=== PATIENT | male | born 1980 | race Two or more races ===

== ENCOUNTER 2024-03-01 16:23 | Emergency (ER) | payer MEDICAID, SELFPAY ==
[2024-03-01 16:45] VITALS: BP 152/83; PULSE 80; RESP 18; TEMP 36.6; O2SAT 99; BMI 26.2
--- NOTE | 2024-03-01 16:45 | PD.EDRME ---
Rapid Medical Screening Exam RME Arrival date/time: 03/01/24 16:23 43-year-old male presents emerged department complaint of lower abdominal pain Chief Complaint: Abdominal Pain
[2024-03-01 17:13] LABS: Basophils # (Auto) 0.1 Thou/mm3 (0.0-0.2); Basophils % (Auto) 1 % (0-2.5); Eosinophils # (Auto) 0.1 Thou/mm3 (0.0-0.5); Eosinophils % (Auto) 2 % (0-10); Hematocrit 35.9 % (41.0-53.0); Hemoglobin 13.1 g/dL (13.5-16.0); Immature Granulocytes % (Auto) 0 % (0-0); Immature Granulocytes Auto 0.02 Thou/mm3 (0.00-0.00); Lymphocytes % (Auto) 38 % (10-50); Mean Corpuscular HGB Conc 36.5 g/dl (31.0-37.0); Mean Corpuscular Hemoglobin 32.7 pg (25.0-35.0); Mean Corpuscular Volume 90 fL (80-100); Monocytes # (Auto) 0.4 Thou/mm3 (0.0-0.8); Monocytes % (Auto) 7 % (0-12); Neutrophils # (Auto) 2.8 Thou/mm3 (1.8-7.7); Neutrophils % (Auto) 51 % (37-80); Nucleated Red Blood Cell % 0 /100 WBC (0); Platelet Count 250 Thou/mm3 (140-440); Red Blood Count 4.01 Miln/mm3 (4.50-5.90); White Blood Count 5.4 Thou/mm3 (3.8-10.6)
[2024-03-01 17:28] LABS: Partial Thromboplastin Time 26.7 Seconds (22.0-36.0); Prothrombin Time 10.7 Seconds (9.0-12.2)
[2024-03-01 17:36] LABS: Alanine Aminotransferase 15 U/L (10-49); Albumin, Serum 4.7 gm/dL (3.5-5.0); Albumin/Globulin Ratio 1.7 (1.2-2.2); Alcohol, Blood Medical < 3.0 mg/dL (0-10.0); Alkaline Phosphatase 93 U/L (46-116); Anion Gap 7 (7-16); Aspartate Amino Transferase 29 U/L (0-34); BUN/Creatinine Ratio 13 Ratio (12-20); Bilirubin,Total 0.3 mg/dL (0.3-1.2); Blood Urea Nitrogen 10 mg/dL (9-23); Calcium 9.6 mg/dL (8.3-10.6); Calcium (Corrected) 9.6 mg/dL (8.5-10.1); Carbon Dioxide 25.5 mMol/L (20.0-31.0); Chloride 104 mMol/L (98-107); Creatinine (Component) 0.8 mg/dL (0.6-1.3); Estimated Creatinine Clearance 89.7 mL/min (>60); Globulin 2.7 gm/dL (2.3-3.5); Glucose 104 mg/dL (74-106); Lipase 38 U/L (12-53); Osmolality,Calculated 270 (275-295); Potassium 3.8 mMol/L (3.4-5.1); Sodium 136 mMol/L (136-145); Total Protein 7.4 gm/dL (5.7-8.2); eGFR > 60 See Note
[2024-03-01 18:05] LABS: Collection Type, Urine Clean Catch; Squamous Epithelial Cell,Urine 0 /hpf (0-5)
[2024-03-01 18:13] LABS: Bilirubin,Urine Negative (Negative); Blood,Urine Negative (Negative); Clarity,Urine Clear (Clear/Hazy); Color,Urine Colorless (Lt Yel-Yel); Culture Indicated,Urine Not Indicated; Glucose, Urine Negative (Negative); Ketones,Urine Negative (Negative); Leukocyte Esterase,Urine Negative (Negative); Nitrite,Urine Negative (Negative); Protein,Urine Negative (Neg - Trace); RBC,Urine 2 /hpf (0-3); Specific Gravity,Urine 1.004 (1.001-1.035); Urobilinogen,Urine Negative mg/dL (0.0-1.0); WBC,Urine < 1 /hpf (0-5)
--- NOTE | 2024-03-01 19:50 | EDNOTE_ITS ---
ED General RME/HPI General Chief complaint: Abdominal Pain Stated complaint: EPIGASTRIC PAIN, VOMITING X YESTERDAY Time Seen by Provider: 03/01/24 19:40 Arrival date/time: 03/01/24 16:23 CC: Epigastric pain with pain rating up to the base of his throat ongoing for the past day. Patient is known history of alcoholism, states he drinks 3 tall cans of beer every day . Patient denies fever chills chest pain shortness of breath difficulty breathing. RME / HPI RME / HPI narrative: 03/01/24 16:23 43-year-old male presents emerged department complaint of lower abdominal pain Related Data Previous Rx's ?Medication ?Instructions ?Recorded ondansetron HCl 4 mg tablet 4 mg PO Q8H #10 tabs 11/07/20 (Zofran) cephalexin 500 mg capsule 500 mg PO BID #14 caps 09/22/21 diphenhydramine HCl 50 mg capsule 50 mg PO TID PRN allergy symptoms 09/22/21 #14 caps ibuprofen 600 mg tablet 600 mg PO Q8H PRN pain #14 tabs 09/22/21 albuterol sulfate 90 mcg/actuation 2 puff inhalation QID #8.5 grams 09/26/21 aerosol inhaler hydrocortisone 2.5 % topical cream 1 applic topical BID PRN rash #30 09/26/21 grams pantoprazole 20 mg tablet,delayed 20 mg PO QDAY #20 tabs 12/16/21 release (Protonix) pantoprazole 40 mg tablet,delayed 40 mg PO QDAY #30 tabs 12/25/22 release (Protonix) famotidine 20 mg tablet 20 mg PO QDAY #20 tabs 03/01/24 sucralfate 1 gram tablet (Carafate) 1 g PO BID #30 tabs 03/01/24 Allergies Allergy/AdvReac Type Severity Reaction Status Date / Time No Known Allergies Allergy Verified 03/01/24 16:24 Review of Systems Review of Systems Narrative Review of Systems: GEN: No fever, no chills, no weight loss EYES: No discharge, no visual changes, no pain HEENT: No ear pain, no congestion, no sore throat PULM: No shortness of breath, no cough, no congestion CV: No chest pain, no dyspnea on exertion, no palpitations GI: No nausea, no vomiting, no diarrhea, + pain, no constipation : No frequency, no urgency, no dysuria MUSC/SKEL: No joint pain, no back pain SKIN: No rash PSYCH: No hallucinations, no depression HEME/LYMPH: No easy bleeding or bruising tendencies NEURO: No weakness, no headache Past Medical History Past Medical History CARDIAC: Negative Cardiac Disorders or Congestive Heart Failure RESPIRATORY: Negative Chronic Obstructive Pulmonary Disease (COPD) or Asthma GENITOURINARY: Negative Renal Disease ENDOCRINE: Negative Diabetes Mellitus Type 1 or Diabetes Mellitus Type 2 HEMATOLOGIC: Negative Sickle Cell Disease Social History SMOKING STATUS: Never smoker ED Exam Narrative Physical exam: [General: Not in any acute distress Head normocephalic HEENT: Eyes pupils are PERRLA EOMs are intact noninjected icteric sclera's. All other subsystems of HEENT are within acceptable limits Neck is supple nontender Chest equal chest rise nontender to palpation Respiratory: Clear to auscultation no wheezes crackles or rubs CV: Rate rhythm is regular no murmurs rubs or clicks Abdomen mild tenderness to the epigastrium mild tenderness to the right upper quadrant and minimal tenderness to the left upper quadrant no reflexive guarding rebound tenderness no lower abdomen tenderness with palpation positive bowel sounds all 4 quadrants. Back: No CVA tenderness no spinous process tenderness from cervical spine thoracic and lumbar spine Skin: Intact no petechiae rash induration ulceration or crepitus Extremities: Moving all extremity against resistance cap refill less than 2 seconds neurosensory intact Neuro: Awake alert oriented x3 Glascow coma 15 no focal deficits] Course Quality Measures none Orders Category Date Time Status CT Screening NOW Care 03/01/24 16:[address] abdomen pelvis wo con Stat Exams 03/01/24 20:59 Completed Alcohol, Blood Medical Stat Lab 03/01/24 17:00 Completed CBC Stat Lab 03/01/24 17:00 Completed Comprehensive Metabolic Panel Stat Lab 03/01/24 17:00 Completed Lipase Stat Lab 03/01/24 17:00 Completed PT [Prothrombin Time with INR] Stat Lab 03/01/24 17:00 Completed PTT [Partial Thromboplastin Time] Stat Lab 03/01/24 17:00 Completed UA, C/S IF [Urinalysis, C/S if Indicated] Stat Lab 03/01/24 17:54 Completed Dexamethasone Inj [Decadron Inj] Med 03/01/24 19:35 Discontinued 10 mg IV X1 ONE DiphenhydrAMINE INJ [Benadryl Inj] Med 03/01/24 19:35 Discontinued 25 mg IVP X1 ONE Famotidine Inj [Pepcid Inj] Med 03/01/24 19:53 Discontinued 20 mg IVP X1 ONE MethylPREDNISolone.* [SoluMEDROL Inj] Med 03/01/24 19:43 Discontinued 125 mg IVP X1 ONE Vital Signs Vital signs: Vital Signs Temperature 98 F 03/01/24 16:45 Pulse Rate 80 03/01/24 16:45 Respiratory Rate 18 03/01/24 16:45 Blood Pressure 152/83 H 03/01/24 16:45 Pulse Oximetry (%) 99 03/01/24 16:45 Oxygen Delivery Method Room Air 03/01/24 16:45 [facility] Patient data External records reviewed:: [facility] previous records Clinical information provided by:: patient Social determinants that could affect healthcare access:: none Patient has the following chronic illnesses:: Alcoholism How is presenting disease/condition affected by chronic disease/condition?: u neffected by Evaluation data The following diagnostics were reviewed and interpreted by me:: lab results and radiology exam(s) Lab and/or radiology exams considered but not ordered:: CBC shows no leukocytosis and anemia of 13 and 35, no thrombocytopenia Coags within acceptable limits CBC shows no acute leukocytosis anemia thrombocytopenia no transaminitis or T. bili elevation Lipase of 38 Urine is negative for UTI Alcohol level is 0 Interpretation Summary: Epigastric pain most likely is gastritis or peptic ulcer disease secondary to poor dietary intake and chronic alcohol abuse. Medications Medications considered but not ordered:: None Medication administrations:: Medication Administration History Discontinued Medications Dexamethasone Sodium Phosphate (Dexamethasone Sod Phos Inj 10 Mg/Ml Vial) 10 mg IV X1 ONE Stop: 03/01/24 19:36 Last Admin: 03/01/24 19:55 Dose: Not Given Documented By: SF Non-Admin Reason: Cancelled by Provider Diphenhydramine HCl (Diphenhydramine Inj 50 Mg/Ml Vial) 25 mg IVP X1 ONE Stop: 03/01/24 19:36 Last Admin: 03/01/24 19:55 Dose: 25 mg Documented By: SF Famotidine (Famotidine Inj 10 Mg/Ml Vial 2 Ml) 20 mg IVP X1 ONE Stop: 03/01/24 19:54 Last Admin: 03/01/24 19:57 Dose: 20 mg Documented By: SF Methylprednisolone Sodium Succinate (Methylprednisolone Sod Succ 62.5 Mg/Ml 2ml Vial) 125 mg IVP X1 ONE Stop: 03/01/24 19:44 Last Admin: 03/01/24 19:55 Dose: 125 mg Documented By: ZELDA None Consultations Consultation(s) initiated? (list below): No Diagnosis Differential Diagnosis ED Complaint MDM: Epigastric pain gastritis cholelithiasis Most likely diagnosis given after review of the tests above:: Gastritis Admission Indicated Admission indicated?: not indicated Explain why admission is indicated or not indicated:: Stable for outpatient follow-up Admission Request Was there a request for admission?: No Disposition Plan Disposition Plan: Discharge Discharge Attestation Discharge Attestation: The patient and all family members were given an opportunity to ask questions and understood the discharge instructions. Discharge instructions specifically effects, indications for sooner follow up or return to the emergency department, and the expected course of current diagnosis. Patient condition: Stable Medical Decision Making Differential Diagnosis Differential Diagnosis: Epigastric pain gastritis cholelithiasis Lab Data 03/01/24 17:00 03/01/24 17:00 Labs: Lab Results 03/01/24 03/01/24 Range/Units 17:00 17:54 WBC 5.4 (3.8-10.6) Thou/mm3 RBC 4.01 L (4.50-5.90) Miln/mm3 Hgb 13.1 L (13.5-16.0) g/dL Hct 35.9 L (41.0-53.0) % MCV 90 (80-100) fL MCH 32.7 (25.0-35.0) pg MCHC 36.5 (31.0-37.0) g/dl RDW Std Deviation 40.0 (35.1-43.9) fL Plt Count 250 (140-440) Thou/mm3 Neut % (Auto) 51 (37-80) % Lymph % (Auto) 38 (10-50) % [place] % (Auto) 7 (0-12) % Eos % (Auto) 2 (0-10) % Baso % (Auto) 1 (0-2.5) % Neut # (Auto) 2.8 (1.8-7.7) Thou/mm3 Lymph # (Auto) 2.0 (1.0-4.8) Thou/mm3 [place] # (Auto) 0.4 (0.0-0.8) Thou/mm3 Eos # (Auto) 0.1 (0.0-0.5) Thou/mm3 Baso # (Auto) 0.1 (0.0-0.2) Thou/mm3 Immature Gran # (Auto) 0.02 H (0.00-0.00) Thou/mm3 Absolute Nucleated RBC 0.00 (0.00-0.00) Thou/mm3 Immature Gran % 0 (0-0) % Nucleated RBC % 0 (0) /100 WBC PT 10.7 (9.0-12.2) Seconds INR 1.0 (0.9-1.3) APTT 26.7 (22.0-36.0) Seconds Sodium 136 (136-145) mMol/L Potassium 3.8 (3.4-5.1) mMol/L Chloride 104 (98-107) mMol/L Carbon Dioxide 25.5 (20.0-31.0) mMol/L Anion Gap 7 (7-16) BUN 10 (9-23) mg/dL Creatinine 0.8 (0.6-1.3) mg/dL Estim Creat Clear Calc 89.7 (>60) mL/min eGFR > 60 (60 - ) See Note BUN/Creatinine Ratio 13 (12-20) Ratio Glucose 104 (74-106) mg/dL Calculated Osmolality 270 L (275-295) Calcium 9.6 (8.3-10.6) mg/dL Corrected Calcium 9.6 (8.5-10.1) mg/dL Total Bilirubin 0.3 (0.3-1.2) mg/dL AST 29 (0-34) U/L ALT 15 (10-49) U/L Alkaline Phosphatase 93 (46-116) U/L Total Protein 7.4 (5.7-8.2) gm/dL Albumin 4.7 (3.5-5.0) gm/dL Globulin 2.7 (2.3-3.5) gm/dL Albumin/Globulin Ratio 1.7 (1.2-2.2) Lipase 38 (12-53) U/L Ur Collection Type Clean Catch Urine Color Colorless A (Lt Yel-Yel) Urine Clarity Clear (Clear/Hazy) Urine pH 7.0 (5.0-7.0) Ur Specific [place] 1.004 (1.001-1.035) Urine Protein Negative (Neg - Trace) Urine Glucose (UA) Negative (Negative) Urine Ketones Negative (Negative) Urine Blood Negative (Negative) Urine Nitrite Negative (Negative) Urine Bilirubin Negative (Negative) Urine Urobilinogen (Auto) Negative (0.0-1.0) mg/dL Ur Leukocyte Esterase Negative (Negative) Urine RBC 2 (0-3) /hpf Urine WBC < 1 (0-5) /hpf Ur Squamous Epith Cells 0 (0-5) /hpf Urine Bacteria None (None) Ur Culture Indicated? Not Indicated Ethyl Alcohol < 3.0 (0-10.0) mg/dL Discharge Plan Plan Patient Disposition: HOME (Self Care) Patient condition on transfer: Stable Prescriptions/Referrals Prescriptions/Med Rec: New famotidine 20 mg tablet 20 mg PO QDAY Qty: 20 0RF sucralfate [Carafate] 1 gram tablet 1 g PO BID Qty: 30 1RF No Action ondansetron HCl [Zofran] 4 mg tablet 4 mg PO Q8H Qty: 10 0RF cephalexin 500 mg capsule 500 mg PO BID Qty: 14 0RF diphenhydramine HCl 50 mg capsule 50 mg PO TID PRN (Reason: allergy symptoms) Qty: 14 0RF ibuprofen 600 mg tablet 600 mg PO Q8H PRN (Reason: pain) Qty: 14 0RF albuterol sulfate 90 mcg/actuation HFA aerosol inhaler 2 puff inhalation QID Qty: 8.5 0RF hydrocortisone 2.5 % cream 1 applic topical BID PRN (Reason: rash) Qty: 30 0RF pantoprazole [Protonix] 20 mg tablet,delayed release (DR/EC) 20 mg PO QDAY Qty: 20 0RF pantoprazole [Protonix] 40 mg tablet,delayed release (DR/EC) 40 mg PO QDAY Qty: 30 0RF Referrals: German Vasquez MD [Physician] - In 1 week No Primary/Family,Physician [Primary Care Provider] - In 1 week Problem List Clinical Impression: Epigastric pain Patient/Caregiver Discharge Instructions Education Materials: ED Epigastric Pain (Uncertain Cause), ED Diet, [facility] (Adult) Additional Instructions: Take the medication as prescribed follow-up with your primary care provider cut back on the drinking beer. Print Language: Sami Stand Alone Forms: Janneth Award Info., Patient Portal Info Letter PA/SPORTS MEDIA Supervising Physician PA/SPORTS MEDIA Supervising Physician: Kenyon Verdugo ENP
[2024-03-01] MEDS: MethylPREDNISolone SOD SUCC 62.5 MG/ML 2ML VIAL 125 MG IVP (19:55)
[2024-03-01] MEDS: DiphenhydrAMINE INJ 50 MG/ML VIAL 25 MG IVP (19:55)
[2024-03-01] MEDS: FAMOTIDINE INJ 10 MG/ML VIAL 2 ML 20 MG IVP (19:57)
--- NOTE | 2024-03-01 20:59 | XR_ITS ---
Examination: CT abdomen and pelvis without contrast. Coronal 3-D reconstructions. Sagittal 2-D reconstructions. Date and time of exam:March 01, 2020 07/23/2013 p.m. Indications: Epigastric pain and vomiting beginning today Comparison 12/25/2022 CTDI: vol (mGy): 5.91 DLP: (mGycm): 348 Technique: Axial images of the abdomen have been obtained, 3 mm slice thickness Intravenous contrast material has not been administered. Low dose protocols were performed. One or more of the following dose reduction techniques were used; automated exposure control, adjustment of the mA and/or KV according to patient size, use of iterative reconstruction technique. Findings: No focal liver or splenic lesions No gallstones No pancreatic or adrenal mass No renal or ureteral calculi, no hydronephrosis Aorta normal size 5 mm fat-containing umbilical hernia Normal appendix No bowel obstruction Urinary bladder wall is thickened up to 7 mm No prostatomegaly Osseous structures are intact Impression: Negative for gallstones No renal or ureteral calculi, no hydronephrosis Normal appendix Urinary bladder wall thickening up to 7 mm, differential would include cystitis
== END 2024-03-01 22:21 | disposition home or self-care (01) ==
PROVIDERS: Nurse Practitioner Primary Care; Emergency Provider Emergency Medicine
DX: R10.13 Epigastric pain (principal)
CPT/HCPCS: 36415; 74176; 80053; 80320; 81001; 83690; 85025; 85610; 85730; 96374; 96375; 99284; J1200; J2919; J3490; G0480

== ENCOUNTER 2024-08-03 17:03 | Emergency (ER) | payer MEDICAID, SELFPAY ==
[2024-08-03 17:11] VITALS: BP 138/82; PULSE 93; RESP 18; TEMP 37.6; O2SAT 98
--- NOTE | 2024-08-03 17:15 | XR_ITS ---
Examination: Abdomen sonogram, Limited Date and time of exam: August 03, 2024 1934 hours INDICATIONS: Epigastric pain and tenderness beginning today Technique: Real-time albright scale transabdominal sonographic images of the upper abdomen obtained. Findings: Normal gallbladder. Normal common bile duct 0.3 cm Pancreatic head 2.7 cm Liver 13.0 cm fatty infiltration no focal liver lesions Normal hepatopedal portal venous flow Patent IVC IMPRESSION: Normal gallbladder Normal common bile duct Fatty liver
--- NOTE | 2024-08-03 17:16 | EDNOTE_ITS ---
ED Abdominal Pain RME/HPI General Chief Complaint: Abdominal Pain Stated complaint: UPPER ABD PAIN RAD TO BACK, DIARRHEA Time seen by provider: 08/03/24 17:11 Arrival date/time: 08/03/24 17:03 RME / HPI RME / HPI narrative: 44-year-old male patient was brought in by family for evaluation regarding right upper quadrant pain. Onset of symptoms since few days as right upper quadrant pain, associated with diarrhea nonbloody. Patient denies any fever. Denies any vomiting denies any other complaints no medication was taken prior to arrival. Related Data Previous Rx's ?Medication ?Instructions ?Recorded ondansetron HCl 4 mg tablet 4 mg PO Q8H #10 tabs 11/07 (Zofran) cephalexin 500 mg capsule 500 mg PO BID #14 caps 09/22 diphenhydramine HCl 50 mg capsule 50 mg PO TID PRN all ergy symptoms 09/22/21 #14 caps ibuprofen 600 mg tablet 600 mg PO Q8H PRN pain #14 t abs 09/22/21 albuterol sulfate 90 mcg/actuation 2 puff inhalation Q ID #8.5 grams 09/26/21 aerosol inhaler hydrocortisone 2.5 % topical cream 1 applic topical BI D PRN rash #30 09/26/21 grams pantoprazole 20 mg tablet,delayed 20 mg PO QDAY #20 ta bs 12/16/21 release (Protonix) pantoprazole 40 mg tablet,delayed 40 mg PO QDAY #30 ta bs 12/25/22 release (Protonix) famotidine 20 mg tablet 20 mg PO QDAY #20 tabs 03/01 sucralfate 1 gram tablet (Carafate) 1 g PO BID #30 tab s 03/01/24 ondansetron HCl 4 mg tablet 4 mg PO Q8H PRN nausea and 08/03/24 vomiting 5 days #20 tabs pantoprazole 40 mg tablet,delayed 40 mg PO QDAY #30 ta bs 08/03/24 release (Protonix) Allergies Allergy/AdvReac Type Severity Reaction Status Date / Time No Known Allergies Allergy Verified 03/01/24 16:24 Review of Systems Review of Systems Narrative Review of Systems: Review of system reviewed and within normal limits except mentioned in HPI ED Exam Narrative Physical exam: VITAL SIGNS: Reviewed. GENERAL APPEARANCE: Alert and interactive, follows commands, no acute distress, HEAD AND FACE: Non-traumatic. ENT: PERRL, pink conjunctivitis, eyelid no trauma, Mucous membrane moist. NECK: Supple, nontender, no nuchal rigidity. CHEST: No tenderness, no crepitus, no paradoxical movement, no retractions. LUNGS: Clear, well ventilated, symmetric, no rales, no wheezing, no ronchi, no stridor, good breath sounds bilaterally. HEART: Regular rate, regular rhythm, no murmur, no gallops. ABDOMEN: Soft, positive bowel sounds, nondistended, no guarding, right upper quadrant tenderness, no rebound, no masses, RECTAL: Deferred. GENITAL: Deferred. NEUROLOGICAL: Gross motor function intact sensory function intact, Appropriate for age. MUSCULOSKELETAL: low back nontender, full range of motion. EXTREMITIES: Nontender, full range of motion. SKIN: Color pink, dry, no rash, no lacerations, no abrasions, no contusions. LYMPHATICS: Deferred. Course Quality Measures none Orders Category Date Time Status US gall bladder Stat Exams 08/03/24 17:15 Completed CBC Stat Lab 08/03/24 17:51 Completed Comprehensive Metabolic Panel Stat Lab 08/03/24 17:51 Completed Lipase Stat Lab 08/03/24 17:51 Completed Prothrombin Time with INR Stat Lab 08/03/24 17:51 Completed UA, C/S IF [Urinalysis, C/S if Indicated] Stat Lab 08/03/24 17:32 Completed Famotidine [Pepcid] Med 08/03/24 17:15 Discontinued 40 mg PO X1 ONE Ondansetron Odt [Zofran Odt] Med 08/03/24 17:15 Discontinued 4 mg PO X1 ONE Vital Signs Vital signs: Vital Signs Temperature 99.6 F 08/03/24 17:11 Pulse Rate 93 08/03/24 17:11 Respiratory Rate 18 08/03/24 17:11 Blood Pressure 138/82 H 08/03/24 17:11 Pulse Oximetry (%) 98 08/03/24 17:11 Oxygen Delivery Method Room Air 08/03/24 17:11 Abdominal Pain MDM MDM Narrative MDM Narrative:: 44-year-old male patient was brought in by family for evaluation regarding right upper quadrant pain. Onset of symptoms since few days as right upper quadrant pain, associated with diarrhea nonbloody. Patient denies any fever. Denies any vomiting denies any other complaints no medication was taken prior to arrival. Patient is laboratory workup all came back normal. Ultrasound of the gallbladder also came back unremarkable. Results discussed with the patient. No recurrence of diarrhea or vomiting noted in the emergency room. Patient appears nontoxic and hemodynamically stable. Patient discharged home and instructed to follow-up with primary care provider in 24 to 48 hours. Instructed to return to the emergency department immediately if worsening of symptoms Patient data External records reviewed:: None Clinical information provided by:: patient Social determinants that could affect healthcare access:: none Patient has the following chronic illnesses:: None How is presenting disease/condition affected by chronic disease/condition?: no chronic disease Evaluation data The following diagnostics were reviewed and interpreted by me:: lab results and radiology exam(s) Lab and/or radiology exams considered but not ordered:: None Interpretation Summary: See results in MD Medications / Prescriptions Medications or Prescriptions considered but not ordered:: None Medication administrations:: Medication Administration History Discontinued Medications Famotidine (Famotidine 20 Mg Tablet) 40 mg PO X1 ONE Stop: 08/03/24 17:16 Last Admin: 08/03/24 18:04 Dose: 40 mg Documented By: TRENA Ondansetron HCl (Ondansetron Odt 4 Mg Tabrap) 4 mg PO X1 ONE; Protocol Stop: 08/03/24 17:16 Last Admin: 08/03/24 18:04 Dose: 4 mg Documented By: TRENA Chaidez Consultations Consultation(s) initiated? (list below): No Diagnosis Differential diagnosis abdominal pain: abdominal pain Most likely diagnosis given after review of the tests above:: Epigastric pain, gastroenteritis Admission Indicated Admission indicated?: not indicated Admission Request Was there a request for admission?: No Disposition Plan Disposition Plan: Discharge Discharge Attestation Discharge Attestation: The patient was given an opportunity to ask questions and understood the discharge instructions. Discharge instructions specifically effects, indications for sooner follow up or return to the emergency department, and the expected course of current diagnosis. Patient condition: Stable Discharge Plan Plan Patient Disposition: HOME (Self Care) Disposition Comment: stable Prescriptions/Referrals Prescriptions/Med Rec: New pantoprazole [Protonix] 40 mg tablet,delayed release (DR/EC) 40 mg PO QDAY Qty: 30 0RF ondansetron HCl 4 mg tablet 4 mg PO Q8H PRN (Reason: nausea and vomiting) 5 Days Qty: 20 0RF No Action ondansetron HCl [Zofran] 4 mg tablet 4 mg PO Q8H Qty: 10 0RF cephalexin 500 mg capsule 500 mg PO BID Qty: 14 0RF diphenhydramine HCl 50 mg capsule 50 mg PO TID PRN (Reason: allergy symptoms) Qty: 14 0RF ibuprofen 600 mg tablet 600 mg PO Q8H PRN (Reason: pain) Qty: 14 0RF albuterol sulfate 90 mcg/actuation HFA aerosol inhaler 2 puff inhalation QID Qty: 8.5 0RF hydrocortisone 2.5 % cream 1 applic topical BID PRN (Reason: rash) Qty: 30 0RF famotidine 20 mg tablet 20 mg PO QDAY Qty: 20 0RF sucralfate [Carafate] 1 gram tablet 1 g PO BID Qty: 30 1RF pantoprazole [Protonix] 20 mg tablet,delayed release (DR/EC) 20 mg PO QDAY Qty: 20 0RF pantoprazole [Protonix] 40 mg tablet,delayed release (DR/EC) 40 mg PO QDAY Qty: 30 0RF Referrals: German Vasquez MD [Primary Care Provider] - In 1 week Problem List Clinical Impression: Gastroenteritis, Vomiting Patient/Caregiver Discharge Instructions Discharge Activity: activity as tolerated Education Materials: ED Vomiting (Adult) Additional Instructions: Thank you for the opportunity for serving you today. You are stable for discharged . You are advised to: Follow-up with your PCP in 1 to 2 days Return to ED for worsening of symptoms Increase oral fluids Take medication as prescribed Print Language: Georgian Stand Alone Forms: Janneth Award Info., Patient Portal Info Letter PA/MARKETING ADMINISTRATIVE ASSISTANT Supervising Physician PA/MARKETING ADMINISTRATIVE ASSISTANT Supervising Physician: MD Mikie
[2024-08-03 18:04] LABS: Collection Type, Urine Clean Catch; RBC,Urine 0 /hpf (0-3); Squamous Epithelial Cell,Urine 0 /hpf (0-5)
[2024-08-03] MEDS: ONDANSETRON ODT 4 MG TABRAP PO (18:04)
[2024-08-03] MEDS: FAMOTIDINE 20 MG TABLET 40 MG PO (18:04)
[2024-08-03 18:09] LABS: Basophils % (Auto) 1 % (0-2.5); Eosinophils # (Auto) 0.1 Thou/mm3 (0.0-0.5); Eosinophils % (Auto) 1 % (0-10); Hemoglobin 12.7 g/dL (13.5-16.0); Immature Granulocytes % (Auto) 0 % (0-0); Immature Granulocytes Auto 0.01 Thou/mm3 (0.00-0.00); Lymphocytes # (Auto) 0.9 Thou/mm3 (1.0-4.8); Lymphocytes % (Auto) 19 % (10-50); Mean Corpuscular HGB Conc 36.3 g/dl (31.0-37.0); Mean Corpuscular Hemoglobin 32.3 pg (25.0-35.0); Mean Corpuscular Volume 89 fL (80-100); Monocytes # (Auto) 0.4 Thou/mm3 (0.0-0.8); Monocytes % (Auto) 8 % (0-12); Neutrophils # (Auto) 3.6 Thou/mm3 (1.8-7.7); Neutrophils % (Auto) 71 % (37-80); Nucleated Red Blood Cell % 0 /100 WBC (0); Platelet Count 193 Thou/mm3 (140-440); RDW Standard Deviation 41.8 fL (35.1-43.9); Red Blood Count 3.93 Miln/mm3 (4.50-5.90); White Blood Count 5.1 Thou/mm3 (3.8-10.6)
[2024-08-03 18:25] LABS: Prothrombin Time 11.3 Seconds (9.0-12.2)
[2024-08-03 18:30] LABS: Alanine Aminotransferase 27 U/L (10-49); Albumin, Serum 4.7 gm/dL (3.5-5.0); Albumin/Globulin Ratio 1.7 (1.2-2.2); Alkaline Phosphatase 86 U/L (46-116); Anion Gap 7 (7-16); Aspartate Amino Transferase 39 U/L (0-34); BUN/Creatinine Ratio 15 Ratio (12-20); Bilirubin,Total 0.6 mg/dL (0.3-1.2); Blood Urea Nitrogen 12 mg/dL (9-23); Calcium 8.4 mg/dL (8.3-10.6); Calcium (Corrected) 8.4 mg/dL (8.5-10.1); Carbon Dioxide 23.6 mMol/L (20.0-31.0); Chloride 104 mMol/L (98-107); Creatinine (Component) 0.8 mg/dL (0.6-1.3); Globulin 2.8 gm/dL (2.3-3.5); Glucose 92 mg/dL (74-106); Lipase 30 U/L (12-53); Osmolality,Calculated 269 (275-295); Potassium 3.8 mMol/L (3.4-5.1); Sodium 135 mMol/L (136-145); Total Protein 7.5 gm/dL (5.7-8.2); eGFR > 60 See Note
[2024-08-03 18:47] LABS: Bilirubin,Urine Negative (Negative); Blood,Urine Negative (Negative); Clarity,Urine Clear (Clear/Hazy); Color,Urine Colorless (Lt Yel-Yel); Culture Indicated,Urine Not Indicated; Glucose, Urine Negative (Negative); Ketones,Urine Negative (Negative); Leukocyte Esterase,Urine Negative (Negative); Nitrite,Urine Negative (Negative); Protein,Urine Negative (Neg - Trace); Specific Gravity,Urine 1.007 (1.001-1.035); Urobilinogen,Urine Negative mg/dL (0.0-1.0); WBC,Urine < 1 /hpf (0-5)
== END 2024-08-03 22:04 | disposition home or self-care (01) ==
PROVIDERS: Nurse Practitioner Family; Emergency Provider Emergency Medicine; PCP Family Medicine
DX: K52.9 Noninfective gastroenteritis and colitis, unspecified (principal)
CPT/HCPCS: 36415; 76705; 80053; 81001; 83690; 85025; 85610; 99284; Q0162; A9270